=== PATIENT | female | born 1945 | race Hispanic/Latino ===

== ENCOUNTER 2021-12-28 12:45 | Emergency (ER) | payer MEDICARE ==
[~2021-12-28] VITALS: Ht 162.6 cm; Wt 90.4 kg
[2021-12-28] MEDS ORDERED: CYCLOBENZAPRINE5 MG PO (13:46)
[2021-12-28] MEDS ORDERED: CEPHALEXIN500 MG PO (13:46)
== END 2021-12-28 13:56 | disposition home or self-care (01) ==
LOC: FSED 12:49
DX: S29.012A Strain of muscle and tendon of back wall of thorax, initial encounter (principal); I10 Essential (primary) hypertension; E11.9 Type 2 diabetes mellitus without complications; E78.5 Hyperlipidemia, unspecified; I25.10 Atherosclerotic heart disease of native coronary artery without angina pectoris; K21.9 Gastro-esophageal reflux disease without esophagitis; M81.8 Other osteoporosis without current pathological fracture
CPT/HCPCS: 81003; 99283